=== PATIENT | male | born 1955 | race Caucasian/White ===

== ENCOUNTER 2021-03-15 08:49 | Outpatient (CLI) | payer OTHER ==
[2021-03-15 10:03] VITALS: BP 127/81
--- NOTE | 2021-03-15 10:03 | SLEEP CARE CONSULTATION ---
Information from patient questionnaire entered by Binta Schaffer. I have reviewed and concur with the information entered by Binta Schaffer. This document represents the service I personally performed and the decisions made by me, Baylee Godfrey ARNP. History of Present Illness Service Date and Time: 03/15/2021 0849 Reason for Visit: New patient, Previously diagnosed sleep apnea Chief Complaint: reports: Insomnia, Unrefreshed sleep, Snoring, Excessive day time sleepiness, Observed pauses in breathing, Fatigue, Frequent awakenings at night, Other (want to upgrade to inspire) Date of Onset: years Usual bedtime: 1 am Time it takes to fall asleep: 30 minutes Snores at night: Yes Observed to quit breathing while asleep: No (except at sleep study) Number of times waking at night: 2-4 Reasons for waking at night: reports: Snoring, Bathroom Toss, Turn, or Twitch while sleeping: Yes Recalls having dreams: Yes Usually gets out of bed at: 10 am Feels refreshed in the morning: No Morning headache: No Sleepy or fatigued during the day: Yes Ever fallen asleep while driving: Yes Takes day naps: No Dreams during day naps: No (maybe) Prior sleep studies: Yes Year and Where: Hospital in [place], [place] and 2 home studies Additional HPI information: I had the pleasure of seeing LAN BAIN today regarding the possibility of him having a sleep disorder. His current complaints are insomnia, excessive daytime sleepiness, fatigue, observed pauses in breathing, snoring and unrefreshed sleep. He has previously diagnosed sleep apnea that was mild 5.3 overall and he is moderate supine in the past. He had an army officer make him an oral appliance. He had a follow up sleep study that showed it controlled his apnea on his sides but not supine. He has also used a PAP device but has not been using it for about a year. Patient states he was diagnosed and then started on a CPAP which he did feel some improvement with. They changed it to an APAP which he did not feel that anything for his sleep apnea. He only tried these modalities for a couple of months each. He then went to an oral appliance about a year ago and has continued to use this for his sleep apnea. He would like to sleep supine but cannot when he uses his oral device. Patient does not like the upkeep of using a PAP machine and feels it is not as effective as it should be. He also does not feel that the oral appliance completely helps with his symptoms and he does not want to have to sleep on his sides always. He would like to seek evaluation for possible implantable inspire device to control his apneas. - Parasomnia Symptoms Ever been unable to move upon waking from sleep: Yes Walks in sleep: No Talks in sleep: No Ever acted out dreams in sleep: No Ever felt weak in the knees when startled or emotional: No Bothered by creepy, crawly, restless sensations in legs: Yes Problems with memory or concentration: Yes Subjective Initial [place] Sleepiness Scale score: 17 (in 2020) Past Medical History Past Medical History: reports: Hypertension, Arthritis, Arrythmia (Atrial Fibrillation), GERD (irregularity; gastroparesis), Other (cholesterol, Prostate enlargement) Social History The patient's occupation is a Not employed. Patient is Single and lives in [place]. Have you smoked in the past 12 months: No Alcohol use: Yes Alcohol amount and frequency: 1 glass 0-4 times per week Caffeine use: No Family History Family history of sleep disordered breathing: Yes Family Hx Sleep Apnea: Mother: Snoring () Allergies and Home Medications Drug allergies reviewed: Yes (NKDA) Home medication list reviewed: Yes Allergy and home medication list: Lansoparazole Carvedilol Atorvastatin Warfarin Tamsulosin Benazepril Finasteride Review of Systems Weight gain over past 5 years: maybe 5 Cardiovascular: reports: high blood pressure, other (A-Fib) Respiratory: reports: shortness of breath, wheeze, sputum production, chronic cough Gastrointestinal: reports: heartburn, other (irregularity gastroparesis) Urinary: reports: incontinence (food induced) Ear/Nose/Throat: reports: nasal congestion, sinus problems Endocrine: reports: sluggishness, too hot or cold, increased appetite, increased urination Musculoskeletal: reports: neck pain, back pain Immunologic: reports: sneezing, allergies to food or environment (pollen) Physical Exam Blood Pressure: 127/81 Cuff size: wrist Heart Rate: 53 O2 Saturation: 98 Height: 5 ft 10 in Weight: 175 lb Body Mass Index: 25.1 BMI Classification: Overweight Heart: regular rate and rhythm Lungs: clear bilaterally Impression and Plan 1. Obstructive Sleep Apnea-Hypopnea Syndrome, mild, with good treatment compliance. Patient has been on continuous treatment since he was diagnosed with sleep apnea. Patient is not satisfied with current treatment. Patient has been using an Ethnodent oral appliance to control his apnea but has to sleep mostly on his side and he prefers to sleep supine. He did feel a little better when using the CPAP but not with the APAP he used. He does note improvement of his symptoms with use of his oral appliance. He does use his device every night. He would like to be evaluated for an Inspire implantable device. I will write a referral for patient to get evaluation by Dr. Ty Britton for Inspire therapy. He voiced understanding and agreement with plan. Patient's apnea severity and rationale for treatment to reduce apnea, improve sleep quality and reduce cardiovascular and cerebrovascular events was reviewed. Patient has hypertension, arrhythmia, and gastric reflux. Patient was encouraged to lose weight for their overall health and to reduce apneas. * Continue oral appliance * Refer to Ty Britton MD for evaluation for Inspire * Attempt to lose weight * Call this office if any problems * Return for follow up in 1 year, or sooner if concerns arise Counseling Topics: Sleeping position, Weight loss health impact Visit Type: In Office Time Spent with Patient (minutes): 34 Provider Statement: I spent 100% of the Face to Face Visit with the patient with greater than 50% spent counseling the patient and coordination of care.
== END 2021-03-15 08:50 | disposition home or self-care (01) ==
LOC: SC 08:49
PROVIDERS: ATTEND Nurse Practitioner Family
DX: G47.33 Obstructive sleep apnea (adult) (pediatric) (principal); E66.3 Overweight; Z68.25 Body mass index [BMI] 25.0-25.9, adult
CPT/HCPCS: 99203; 99212

== ENCOUNTER 2024-02-29 10:48 | Emergency (ER) | payer OTHER ==
[2024-02-29 11:25] VITALS: BP 117/79; O2SAT 99
--- NOTE | 2024-02-29 12:21 | ED Physician Documentation ---
PD HPI ABD PAIN - Stated complaint Stated Complaint: - Chief complaint Chief Complaint: Abd Pain - History obtained from History obtained from: Patient - Additional information Additional information: 68-year-old gentleman on warfarin for A-fib. He presents with a chief complaint of blood in his urine. He said it was quite bloody this morning but without clots but since then it is cleared up. He has some mild irritation at the tip of his penis. No flank pain. He states that about a year ago he had blood in his urine as well. He went somewhere and had some testing done. When queried specifically as to whether he had a cystoscopy, he replies he does not know. He does not know also when he last had his INR checked nor what it was. PD PAST MEDICAL HISTORY - Past Medical History Cardiovascular: Hypertension, High cholesterol, Atrial fibrillation GI: GERD : Benign prostate hypertrophy - Past Surgical History Past Surgical History: No HEENT: Tonsil/Adenoidectomy - Allergies Allergies/Adverse Reactions: Allergies Allergy/AdvReac Type Severity Reaction Status Date / Time No Known Drug Allergies Allergy Verified 02/29/24 11:19 - Social History Does the pt smoke?: No Smoking Status: Never smoker Does the pt drink ETOH?: Yes ETOH Use: Beer Does the pt have substance abuse?: No PD ED PE NORMAL - Vitals Vital signs reviewed: Yes - General General: Alert and oriented X 3, No acute distress - Abdomen Abdomen: Normal bowel sounds, Soft, Non tender, Other (Bedside ultrasound demonstrates a bladder of relatively normal size i.e. not retaining and no clots.) - Neuro Neuro: Alert and oriented X 3 Results - Vitals Vitals: Vital Signs - 24 hr 02/29/24 11:08 Temperature 36.5 C Heart Rate 58 L Respiratory 18 Rate Blood Pressure 117/79 O2 Saturation 99 Oxygen O2 Source Room air - Labs Labs: Laboratory Tests 02/29/24 02/29/24 02/29/24 11:32 12:44 12:44 WBC 4.9 RBC 4.74 Hgb 14.0 Hct 42.0 MCV 88.6 MCH 29.5 MCHC 33.3 RDW 13.0 Plt Count 137 MPV 9.5 Neut # (Auto) 2.8 Lymph # (Auto) 1.3 L [place] # (Auto) 0.5 Eos # (Auto) 0.2 Baso # (Auto) 0.0 Absolute Nucleated RBC 0.00 Nucleated RBC % 0.0 PT 46.2 H INR 4.7 H* Sodium Potassium Chloride Carbon Dioxide Anion Gap BUN Creatinine Estimated GFR (MDRD) Glucose Calcium Total Bilirubin AST ALT Alkaline Phosphatase Total Protein Albumin Globulin Albumin/Globulin Ratio Urine Color LIGHT YELLOW Urine Clarity CLEAR Urine pH 6.0 Ur Specific [place] 1.010 Urine Protein NEGATIVE Urine Glucose (UA) NEGATIVE Urine Ketones NEGATIVE Urine Occult Blood NEGATIVE Urine Nitrite NEGATIVE Urine Bilirubin NEGATIVE Urine Urobilinogen 0.2 (NORMAL) Ur Leukocyte Esterase NEGATIVE Ur Microscopic Review NOT INDICATED Urine Culture Comments NOT INDICATED 02/29/24 12:44 WBC RBC Hgb Hct MCV MCH MCHC RDW Plt Count MPV Neut # (Auto) Lymph # (Auto) [place] # (Auto) Eos # (Auto) Baso # (Auto) Absolute Nucleated RBC Nucleated RBC % PT INR Sodium 139 Potassium 4.4 Chloride 106 Carbon Dioxide 29 Anion Gap 4.0 L BUN 18 Creatinine 0.6 Estimated GFR (MDRD) 134 Glucose 97 Calcium 9.7 Total Bilirubin 0.6 AST 22 ALT 22 Alkaline Phosphatase 88 Total Protein 6.3 L Albumin 4.3 Globulin 2.0 L Albumin/Globulin Ratio 2.2 Urine Color Urine Clarity Urine pH Ur Specific [place] Urine Protein Urine Glucose (UA) Urine Ketones Urine Occult Blood Urine Nitrite Urine Bilirubin Urine Urobilinogen Ur Leukocyte Esterase Ur Microscopic Review Urine Culture Comments PD Medical Decision Making - ED course ED course: He has resolved hematuria and his urinalysis is now normal. His INR is 4.7, CBC and CMP are unremarkable. Advised a pause in his blood thinner pending recheck and follow-up with urology. Departure - Departure Disposition: 01 Home, Self Care Clinical Impression: Hematuria Qualifiers: Hematuria type: gross Qualified Code(s): R31.0 - Gross hematuria Condition: Good Record reviewed to determine appropriate education?: Yes Instructions: ED Hematuria Comments: Your INR ("Coumadin level" or "Warfarin level") today was 4.7. It should be between 2 and 3. This means your blood is too thin and that is probably related to why he had the blood in your urine this morning. There is no residual blood in your urine at this time. You should skip your blood thinner for the next 2 days and then have your INR checked again before reinstituting your blood thinner. You should also follow-up with your primary care physician at [facility] with referral to urology for consideration for further workup such as cystoscopy. Return if worse. Forms: PCP List
[2024-02-29 12:22] LABS: BILIRUBIN,URINE NEGATIVE (NEGATIVE); GLUCOSE, URINE (UA) NEGATIVE (NEGATIVE); KETONES,URINE (UA) NEGATIVE (NEGATIVE); LEUKOCYTE ESTERASE, URINE NEGATIVE (NEGATIVE); NITRITE,URINE NEGATIVE (NEGATIVE); OCCULT BLOOD,URINE NEGATIVE (NEGATIVE); PROTEIN,URINE NEGATIVE (NEGATIVE); UROBILINOGEN,URINE 0.2 (NORMAL) E.U./dL (NORMAL)
[2024-02-29 12:23] LABS: CLARITY,URINE CLEAR (CLEAR)
[2024-02-29 12:49] LABS: BASOPHILS % (AUTO) 0.6 %; EOSINOPHILS # (AUTO) 0.2 10^3/uL (0.0-0.7); EOSINOPHILS % (AUTO) 3.9 %; LYMPHOCYTES # (AUTO) 1.3 10^3/uL (1.5-3.5); LYMPHOCYTES % (AUTO) 26.3 %; MEAN CORPUSCULAR HEMOGLOBIN 29.5 pg (27.0-31.0); MEAN CORPUSCULAR HGB CONC 33.3 g/dL (32.0-36.0); MEAN CORPUSCULAR VOLUME 88.6 fL (80.0-94.0); MEAN PLATELET VOLUME 9.5 fL (7.4-11.4); MONOCYTES # (AUTO) 0.5 10^3/uL (0.0-1.0); MONOCYTES % (AUTO) 11.1 %; NEUTROPHILS # (AUTO) 2.8 10^3/uL (1.5-6.6); NEUTROPHILS % (AUTO) 57.7 %; PLT - PLATELET COUNT 137 10^3/uL (130-450); RED BLOOD COUNT 4.74 10^6/uL (4.70-6.10); WHITE BLOOD COUNT 4.9 x10^3/uL (4.8-10.8)
[2024-02-29 13:03] LABS: ALBUMIN 4.3 g/dL (3.2-5.5); ALBUMIN/GLOBULIN RATIO 2.2 (1.0-2.2); BILIRUBIN,TOTAL 0.6 mg/dL (0.2-1.0); CALCIUM 9.7 mg/dL (8.5-10.3); CREATININE 0.6 mg/dL (0.6-1.3); POTASSIUM 4.4 mmol/L (3.5-4.5); PT - PROTHROMBIN TIME 46.2 secs (9.9-12.6); TOTAL PROTEIN 6.3 g/dL (6.4-8.9)
[2024-02-29 13:05] LABS: INR 4.7 (0.8-1.2)
== END 2024-02-29 13:20 | disposition home or self-care (01) ==
LOC: ED 10:48
DX: R31.0 Gross hematuria (principal); I48.91 Unspecified atrial fibrillation; Z79.01 Long term (current) use of anticoagulants; I10 Essential (primary) hypertension; E78.00 Pure hypercholesterolemia, unspecified; N40.0 Benign prostatic hyperplasia without lower urinary tract symptoms
CPT/HCPCS: 36415; 80053; 81001; 81003; 85025; 85610; 87086; 99283